=== PATIENT | male | born 1960 | race Caucasian/White ===

== ENCOUNTER 2018-08-02 18:45 | Outpatient (REF) | payer MEDICAID, SELFPAY ==
[2018-08-02 22:54] LABS: ALT 27 U/L (12-78); AST 15 U/L (15-37); Albumin 3.9 g/dL (3.4-5.0); Alkaline Phosphatase 69 U/L (46-116); Anion Gap 9.4 mmol/L (3-11); BUN 15 mg/dL (7-18); Bilirubin, Total 0.5 mg/dL (0.2-1.0); CO2 25.6 mmol/L (21.0-32.0); CREATININE 0.88 mg/dL (0.70-1.30); Calcium 8.8 mg/dL (8.5-10.1); Chloride 106 mmol/L (98-107); Cholesterol 210 mg/dL (50-200); Glucose 97 mg/dL (70-100); HDL Cholesterol 49 mg/dL (40-60); LDL CHOLESTEROL 146 mg/dL (<100); Sodium 141 mmol/L (136-145); Total Protein 7.2 g/dL (6.4-8.2); Triglyceride 100 mg/dL (30-150)
[2018-08-02 23:54] LABS: Hemoglobin A1C 5.4 % (4.5-6.2)
== END 2018-08-02 19:05 ==
LOC: NCHCN 18:45
PROVIDERS: PCP Family Medicine; Visit Provider Family Medicine
DX: I10 Essential (primary) hypertension (principal); R73.09 Other abnormal glucose; E66.3 Overweight
CPT/HCPCS: 80053; 80061; 83721; 83036

== ENCOUNTER 2018-08-18 20:33 | Outpatient (REF) | payer MEDICAID, SELFPAY ==
[2018-08-18 21:54] LABS: Anion Gap 9.8 mmol/L (3-11); BUN 13 mg/dL (7-18); CO2 27.2 mmol/L (21.0-32.0); CREATININE 0.87 mg/dL (0.70-1.30); Chloride 107 mmol/L (98-107); Glucose 151 mg/dL (70-100); Potassium 4.1 mmol/L (3.5-5.1); Sodium 144 mmol/L (136-145)
== END 2018-08-18 20:53 ==
LOC: NCHCN 20:33
PROVIDERS: PCP Family Medicine; Referring Provider Family Medicine; Visit Provider Family Medicine
DX: I10 Essential (primary) hypertension (principal)
CPT/HCPCS: 80048

== ENCOUNTER 2021-08-07 19:35 | Outpatient (REF) | payer MEDICAID, SELFPAY ==
[2021-08-07 21:47] LABS: Hemoglobin A1C 5.4 % (<5.7)
[2021-08-07 21:57] LABS: ALT 36 U/L (16-63); AST 14 U/L (15-37); Albumin 3.9 g/dL (3.4-5.0); Alkaline Phosphatase 66 U/L (46-116); Anion Gap 12.1 mmol/L (3-11); BUN 17 mg/dL (7-18); Bilirubin, Total 0.6 mg/dL (0.2-1.0); CO2 22.9 mmol/L (21.0-32.0); CREATININE 0.9 mg/dL (0.70-1.30); Calculated LDL 95 mg/dL (<100); Chloride 104 mmol/L (98-107); Cholesterol 190 mg/dL (<200); Glucose 107 mg/dL (74-106); HDL Cholesterol 68 mg/dL (40-60); Potassium 3.9 mmol/L (3.5-5.1); Sodium 139 mmol/L (136-145); Total Protein 7.1 g/dL (6.4-8.2); Triglyceride 139 mg/dL (<150)
[2021-08-10 10:02] LABS: PSA, Screening 0.8 ng/mL (0.0-4.5)
== END 2021-08-07 19:36 | disposition home or self-care (01) ==
LOC: NCHCN 19:35
PROVIDERS: PCP Family Medicine; Visit Provider Family Medicine
DX: I10 Essential (primary) hypertension (principal); R73.09 Other abnormal glucose; R39.11 Hesitancy of micturition; Z00.00 Encounter for general adult medical examination without abnormal findings
CPT/HCPCS: 80053; 80061; 84153; 83036

== ENCOUNTER 2021-08-25 15:56 | Outpatient (REF) | payer MEDICAID, SELFPAY ==
[2021-08-25 22:23] LABS: Anion Gap 10.3 mmol/L (3-11); BUN 14 mg/dL (7-18); CO2 26.7 mmol/L (21.0-32.0); CREATININE 1.3 mg/dL (0.70-1.30); Calcium 9.7 mg/dL (8.5-10.1); Chloride 106 mmol/L (98-107); Estimated GFR 56.31 (mL/min/1.73m2); Glucose 132 mg/dL (74-106); Potassium 3.6 mmol/L (3.5-5.1); Sodium 143 mmol/L (136-145)
== END 2021-08-25 15:57 | disposition home or self-care (01) ==
LOC: NCHCN 15:56
PROVIDERS: PCP Family Medicine; Visit Provider Family Medicine
DX: I10 Essential (primary) hypertension (principal)
CPT/HCPCS: 80048

== ENCOUNTER 2022-07-16 18:14 | Outpatient (REF) | payer MEDICAID, SELFPAY ==
[2022-07-16 15:43] LABS: ALT 29 U/L (16-63); AST 20 U/L (15-37); Albumin 3.6 g/dL (3.4-5.0); Alkaline Phosphatase 42 U/L (46-116); Anion Gap 5.7 mmol/L (3-11); BUN 10 mg/dL (7-18); Bilirubin, Total 0.4 mg/dL (0.2-1.0); CO2 27.3 mmol/L (21.0-32.0); CREATININE 0.9 mg/dL (0.70-1.30); Calcium 8.6 mg/dL (8.5-10.1); Chloride 106 mmol/L (98-107); Glucose 154 mg/dL (74-106); Potassium 4.1 mmol/L (3.5-5.1); Sodium 139 mmol/L (136-145); Total Protein 6.9 g/dL (6.4-8.2)
== END 2022-07-16 18:15 | disposition home or self-care (01) ==
LOC: NCHCN 18:14
PROVIDERS: PCP Family Medicine; Visit Provider Family Medicine
DX: I10 Essential (primary) hypertension (principal); Z72.89 Other problems related to lifestyle
CPT/HCPCS: 80053

== ENCOUNTER 2022-07-26 18:55 | Outpatient (REF) | payer MEDICAID, SELFPAY ==
[2022-07-26 21:57] LABS: Hemoglobin A1C 5.4 % (<5.7)
== END 2022-07-26 18:56 | disposition home or self-care (01) ==
LOC: NCHCN 18:55
PROVIDERS: PCP Family Medicine; Visit Provider Family Medicine
DX: E66.3 Overweight (principal); Z13.1 Encounter for screening for diabetes mellitus; Z00.00 Encounter for general adult medical examination without abnormal findings
CPT/HCPCS: 83036

== ENCOUNTER 2022-10-19 16:35 | Outpatient (REF) | payer MEDICAID, SELFPAY ==
[2022-10-19 16:36] LABS: ALT 28 U/L (16-63); AST 17 U/L (15-37); Albumin 4.1 g/dL (3.4-5.0); Alkaline Phosphatase 43 U/L (46-116); BUN 18 mg/dL (7-18); Bilirubin, Total 0.5 mg/dL (0.2-1.0); Calcium 9.2 mg/dL (8.5-10.1); Chloride 98 mmol/L (98-107); Estimated GFR 85.63 (mL/min/1.73m2); Glucose 167 mg/dL (74-106); Potassium 3.9 mmol/L (3.5-5.1); Sodium 133 mmol/L (136-145); Total Protein 7.5 g/dL (6.4-8.2)
== END 2022-10-19 16:36 | disposition home or self-care (01) ==
LOC: NCHCN 16:35
PROVIDERS: PCP Family Medicine; Visit Provider Family Medicine
DX: I10 Essential (primary) hypertension (principal)
CPT/HCPCS: 80053

== ENCOUNTER 2023-06-03 14:57 | Outpatient (REF) | payer MEDICAID, SELFPAY ==
[2023-06-03 14:55] LABS: ALT 24 U/L (16-63); AST 16 U/L (15-37); Albumin 4.2 g/dL (3.4-5.0); Alkaline Phosphatase 61 U/L (46-116); Anion Gap 8.6 mmol/L (3-11); BUN 26 mg/dL (7-18); Bilirubin, Total 0.4 mg/dL (0.2-1.0); CO2 27.4 mmol/L (21.0-32.0); CREATININE 0.8 mg/dL (0.70-1.30); Calcium 9.3 mg/dL (8.5-10.1); Calculated LDL 141 mg/dL (<100); Chloride 102 mmol/L (98-107); Cholesterol 225 mg/dL (<200); Estimated GFR 100.06 (mL/min/1.73m2); Glucose 126 mg/dL (74-106); HDL Cholesterol 77 mg/dL (40-60); Potassium 4.4 mmol/L (3.5-5.1); Sodium 138 mmol/L (136-145); Total Protein 7.2 g/dL (6.4-8.2); Triglyceride 35 mg/dL (<150)
[2023-06-03 22:44] LABS: PSA, Screening 0.7 ng/mL (<=4.5)
== END 2023-06-03 14:58 | disposition home or self-care (01) ==
LOC: NCHCN 14:57
PROVIDERS: PCP Family Medicine; Visit Provider Family Medicine
DX: Z00.00 Encounter for general adult medical examination without abnormal findings (principal); Z13.220 Encounter for screening for lipoid disorders; I10 Essential (primary) hypertension; Z12.5 Encounter for screening for malignant neoplasm of prostate
CPT/HCPCS: 80053; 80061; 84153

== ENCOUNTER 2023-07-07 09:09 | Outpatient (REF) | payer MEDICAID, SELFPAY ==
--- OUTSIDE RECORDS SUMMARY | 2023-07-07 09:12 | XMS_ITS | CCD ---
Author Name Unknown Address [address] [place] [address] [id number] Organization Unknown Address [address] [place] [address] [id number] Care Team Providers Care Photographic Laboratory Supervisor Name Role Phone FAREED CORBETT Attending Physician [phone] YONG TRIMBLE Er Physician 3 [phone] NARCISA Stanton Registered Nurse [phone] Vital Signs Vital Sign Value Unit Date/Time Recent/Initial ? BMI (Body Mass Index) 26.88 kg/m^2 05/28/2023 13: 06 Initial VS Weight Measured 182 lbs 05/28/2023 13:06 Ini tial VS Height 69 in 05/28/2023 13:06 Initial VS BSA (Body Surface Area) 2 m^2 05/28/2023 1 3:06 Initial VS BP Systolic 127 mmHg 05/28/2023 13:06 Initial VS BP Diastolic 76 mmHg 05/28/2023 13:06 Initia l VS Respiratory Rate 16 bpm 05/28/2023 13:06 In itial VS Heart Rate 97 bpm 05/28/2023 13:06 Initial VS O2 % BldC Oximetry 99 % 05/28/2023 13:06 Initial VS Body Temperature 36.6 degrees 05/28/2023 13:06 In itial VS BP Systolic 128 mmHg 05/28/2023 14:28 Most Re cent VS BP Diastolic 76 mmHg 05/28/2023 14:28 Most R ecent VS Respiratory Rate 16 bpm 05/28/2023 14:[address] Recent VS Heart Rate 82 bpm 05/28/2023 14:28 Most Rec ent VS O2 % BldC Oximetry 98 % 05/28/2023 14:28 Most Recent VS Body Temperature 36.6 degrees 05/28/2023 14:[address] Recent VS Allergies Allergy Code Allergy Type Reaction Status No Known Drug Allergies 0 No known drug allergies Active Procedures Unknown or Not Available. History of Immunizations Unknown or Not Available. Problems Problem Code Start Date Resolved Date Status HTN [id number] Active Results Unknown or Not Available. Active Medications Unknown or Not Available. Medications Administered During Visit Medication Dose Units Frequency Route Date/Time of Last Dose TETRACAINE OPTH SOLN 0.5% 4ML 1 DROP X1 OPTH EACH EYE 05/28/2023 13: 39 ERYTHROMYCIN OPHTHALMIC OINTMENT 1GM 1 DORINA X1 OPTH EACH EYE 05/28/2023 13: 39 Encounters Encounter Diagnosis Diagnosis Code Start Date Foreign body in right cornea [id number] 0 05/28/2023 Social History Smoking Status Code Start Date End Date Never smoker [id number] Patient Decision Aids Unknown or Not Available. Discharge Instructions You were admitted to [facility] on 05/28/2023 12:56 with a principal diagnosis of Foreign body in cornea, right eye, initial encounter You were discharged from [facility] on 05/28/2023 14:38 Should you have any questions prior to discharge, please contact a member of your healthcare team. If you have left the hospital and have any questions, please contact your primary care physician. Chief Complaint and Reason For Visit Chief Complaint Date of Onset FOREIGN OBJECT IN RIGHT EYE Function Status Unknown or Not Available. Plan of Care Unknown or Not Available. Referral/Transition of Care Unknown or Not Available.
[2023-07-07 16:16] LABS: Hemoglobin A1C 5.4 % (<5.7)
[2023-07-07 16:36] LABS: Glucose 114 mg/dL (74-106)
== END 2023-07-07 09:10 | disposition home or self-care (01) ==
LOC: NCHCN 09:09
PROVIDERS: PCP Family Medicine; Visit Provider Family Medicine
DX: R73.01 Impaired fasting glucose (principal)
CPT/HCPCS: 82947; 83036

== ENCOUNTER 2024-08-09 15:38 | Outpatient (REF) | payer MEDICAID, SELFPAY ==
--- OUTSIDE RECORDS SUMMARY | 2024-08-09 15:40 | XMS_ITS ---
Author Organization Unknown Address [address] [place] [address] [phone] Phone Care Team Providers Care Hand Lacer Name Role Phone SOURAV BLEVINS Registered Nurse Unavailable CARLOS Mcdonald Attending Unavailable ROCIO Alex Primary Unavailable UNLISTED PROVIDER - REQUESTED Xhandoff Un available Social History Type Status Start Date End Date Code Code Syst em Smoking History Never smoker (Never Smoked) 411323800 SNOMED CT Sex Male Vital Signs Vital Sign Value Unit [place] Value [place] Unit Date/Time Recent/Initial? Code Code System Body Mass Index 29.95 kg/m2 02/15/2024 08:55 Initial 04178 -5 [facility] Systolic Blood Pressure 186 mm[Hg] 02/15/2024 08:55 Initial 8480- 6 [facility] Diastolic Blood Pressure 86 mm[Hg] 02/15/2024 08:55 Initial 8462- 4 [facility] Body Surface Area 2.07 m2 02/15/2024 08:55 Initial 3140- 1 LOINC Height 172.720 0 cm 68.00 in 02/15/2024 08:55 Initial 8302- 2 [facility] O2 Saturation 99 % 2023 08:55 Initial 50594 -5 [facility] Pulse 82.0 /min 02/15/2024 08:55 Initial 8867- 4 [facility] Respiration 16 /min 02/15/20 08:55 Initial 9279- 1 LOINC Temperature 37.3 Merissa 99.1 F 02/15/20 08:55 Initial 8310- 5 [facility] Weight 89.36 kg 197.00 lbs 02/15/2024 08:55 Initial 09100 -7 [facility] Medications Medication Start Date End Date Route Frequency Dose Code Code System Medication Instructions Home Meds Ibuprofen 200MG Oral Tablet 02/15/2024 Unknown ORAL EVERY 6 HOURS 3 TABLET 839540 RxNorm TAKE 3 TABLET ORAL EVERY 6 HOURS FOR 2 DAYS THEN NEEDED FOR PAIN Acetaminophen 500MG Oral Tablet 02/15/2024 Unknown ORAL NEEDED EVERY 6 HOURS 2 TABLET 572070 RxNorm TAKE 2 TABLET ORAL EVERY 6 HOURS FOR 2 DAYS THEN NEEDED FOR Pain Cyclobenzaprine 10MG Oral Tablet 02/15/2024 Unknown ORAL NEEDED EVERY 6 HOURS 1 TABLET 403020 RxNorm TAKE 1 TABLET ORAL NEEDED EVERY 6 HOURS FOR Pain/spasm Lidocaine 5% Topical application Patch, Extended Release 02/15/2024 Unknown TOPICAL APPLICATIO N DAILY 1 6671731 RxNorm 1-2 PATCHES TOPICAL APPLICATION DAILY, 12 hours on and 12 hours off per day Assessment You had the following problems:HTNACUTE LOW BACK PAIN Hospital Discharge Instructions Should you have any questions prior to discharge, please contact a member of your healthcare team. If you have left the hospital and have any questions, please contact your primary care physician. Reason For Referral No Data Found Problems Problem Start Date Resolved Date Status Code Code System HTN active [id number] SNOMED-CT ACUTE LOW BACK PAIN active 990840494 SNOMED-CT Allergies and Adverse Reactions Allergy Substance Reaction Severity Start Date Concern Status Co de Code System No Known Drug Allergies Active 117569270 SNOMED-CT Plan of Treatment OUTPATIENT PLAN: Additional Physician Instructions: Heat and stretches as discussed. Your prescription was electronically sent to [facility]. Discharge Medications Medication Dosage Route Frequency Prescribing MD Special Instructions Ibuprofen 200MG Oral Tablet (hiiu-ioc-enolljo) 3 TABLET ORAL EVERY 6 HOURS CARLOS Mcdonald TAKE 3 TABLET ORAL EVERY 6 HOURS FOR 2 DAYS THEN NEEDED FOR PAIN Acetaminophen 500MG Oral Tablet (afer-yfa-eiyuczp) 2 TABLET ORAL NEEDED EVERY 6 HOURS CARLOS Mcdonald TAKE 2 TABLET ORAL EVERY 6 HOURS FOR 2 DAYS THEN NEEDED FOR Pain Cyclobenzaprine 10MG Oral Tablet 1 TABLET ORAL NEEDED EVERY 6 HOURS CARLOS Mcdonald TAKE 1 TABLET ORAL NEEDED EVERY 6 HOURS FOR Pain/spasm Lidocaine 5% Topical application Patch, Extended Release TOPICAL APPLICATION DAILY CARLOS Mcdonald 1-2 PATCHES TOPICAL APPLICATION DAILY, 12 hours on and 12 hours off per day HOSPITAL COURSE AND TESTING: Medications given this visit: Ordered & Completed Meds Table Ordered Medication Start Date/Time Dosage Route Frequency Status ACETAMINOPHEN TABLET: 325MG 02/15/2024 09:03 975 MG ORAL X1 active LIDOCAINE PATCH 5% 02/15/2024 09:03 2 PATCH TRANSDERMAL X1 active Encounters Encounter Diagnosis Start Date Code Code Sys tem Low back pain, unspecified 02/15/2024 S NOMED-CT Personal Care Team Section Performer Name Performer Role Active Date Inactive Da te
--- OUTSIDE RECORDS SUMMARY | 2024-08-09 15:40 | XMS_ITS | Clinical Summary ---
Author Organization [facility] Address [address] [place] [address] Care Team Providers Care Painter Tumbling Barrel Name Role Phone Unavailable Primary Care Provider Unavailabl e Social History Tobacco Use Types Packs/Day Years Used Date Smoking Tobacco: Never Assessed Sex and Gender Information Value Date Recorded Sex Assigned at Not on file Gender Identity Not on file Sexual Orientation Not on file Plan of Treatment Health Maintenance Due Date Last Done Comments Hepatitis C Screen 1960 RSV Immunization ( o r 60+ Years) (1 - 1-dose 60+ series) 2021 COVID-19 Vaccine (2022-24 season) 2023
--- OUTSIDE RECORDS SUMMARY | 2024-08-09 15:40 | XMS_ITS | Data Portability ---
Author Organization [place] - [facility] Address [address] [address] Care Team Providers Care Inside Sales Consultant Name Role Phone RAMON WILLIS Dentist Assessment No assessment recorded. Plan of Treatment Reminders Order Date Submit Date Provider Last Modified By Organization Details Last Modified Time Details Appointments Nurse Visit 20 2023 07:50A M Not available Not available Not available Annual Wellness Exam 40 2023 01:00P M Not available Not available Not available Lab HbA1c (hemoglob in A1c), blood [address] [facility] (Registration ), [address] [place] [address] [place], [address], 08/09/2024 10:38:40 CMP, serum or plasma [address] [facility] (Registration ), [address] [place] [address] [place], [address], 08/09/2024 10:38:40 lipid panel, serum [address] [facility] (Registration ), [address] [place] [address] [place], [address], 08/09/2024 10:38:40 PSA, serum or plasma [address] [facility] (Registration ), [address] [place] [address] [place], [address], 08/09/2024 10:38:40 Referral None recorded. Procedures None recorded. Surgeries None recorded. Imaging None recorded. Medication Orders None recorded. Patient TargetsNo targets recorded. Patient Instructions Encounter Date Encounter Id Patient Instructions Last Modified By Organization Details Last Modified Time 02/07/2024 [id number] weight managemen t education Not available 02/08/2024 06:08:53 It was nice to see you, Elias! Your blood pressure is excellent! Try to increase your physical activity to counteract the winter weight gain! I'll see you in 6 months, with fasting labs ahead of time. Call in the meantime with any questions or concerns. Take care! Not available 02/07/2024 15:09:07 Reason for Referral Dentist Referral for Poor or al hygiene Referring Physician: Michael Horvath, Family Medicine, Encounter Date: 06/18/2024 Problems Name Problem SNOMED Code Status Onset Date Resolution Date Notes Provider Name and Address Organization Details Recorded Time [facility] hyperten kristi 18388577 Active 201512/18/19 23 - Comments only - Michael Horvath M.D. - Excellen t control with the increase d amlodipi ne dose. He has also made some signific ant reductio ns in alcohol intake. Encour ed him to keep up the good work. UTD on labs. No change to regimen, follow-u p in 6 months with fasting labs ahead of time. Problem Code: I10; Problem Code Type: ICD-10; MD [address], [place], [address] , [facility] 4 06:06:30 [place] ht 715481521 Active 201708/07/20 21 - Comments only - Michael Horvath M.D. - Labs as below. Leif hickey Problem Code: E66.3; Problem Code Type: ICD-10; MD [address], [place], [address] , [facility] 4 06:06:29 Screenin g for malignan t neoplasm of colon Completed 201702/08/2024 Problem Code: Z12.11; Problem Code Type: ICD-10; MD [address], [place], [address] , [facility] 4 06:06:37 Adult health examinat ion Active 202008/07/20 21 - Comments only - Michael Horvath M.D. - Labs today. [place] ordered. Problem Code: Z00.00; Problem Code Type: ICD-10; MD [address], [place], [address] , [facility] 4 06:06:30 Delay when starting to pass urine 0163357 Completed 202011/05/2021 08/07/20 21 - Comments only - Michael Horvath M.D. - Likely BPH. Check PSA today. At f/u appt in a few wks, consider prostate exam and starting BPH med. Problem Code: R39.11; Problem Code Type: ICD-10; Not Available [facility] 3 05:39:02 Carpal tunnel syndrome of right wrist 23807740005 9108 Completed 202002/08/2024 08/26/20 21 - Comments only - Michael Horvath M.D. - Again, reviewed recommen dations for nighttim e brace. He will let me know if symptoms worsen. Problem Code: G56.01; Problem Code Type: ICD-10; MD [address], [place], [address] , [facility] 4 06:06:37 Self-inj urious behavior 930719918 Completed 202102/08/2024 08/03/20 22 - Comments only - Michael Horvath M.D. - [facility] ed to continue his efforts at reducing alcohol intake. Reviewed the risk of 2 or fewer drinks per day for a man. Problem Code: Z72.89; Problem Code Type: ICD-10; MD [address], [place], [address] , [facility] 4 06:06:37 Disorder of tooth developm ent 085239109 Completed 202102/08/2024 04/05/20 22 - Comments only - Michael Horvath M.D. - With what sounds like a recent abscess, although no signs of abscess on exam today. Advised continue d salt water rinses and to get in GISELA with a dentist. I've asked him to reach out if he has difficul ty establis umberto care in a timely manner. Problem Code: K00.9; Problem Code Type: ICD-10; MD [address], [place], [address] , [facility] 4 06:06:37 Erectile dysfunct ion 757347636 Active 202112/18/19 23 - Comments only - Michael Horvath M.D. - 50 mg sildenaf il was ineffect arelis. I instruct ed him to try 100 mg. If ineffect arelis, he will let me know, and we can try a differen t medicati on. Problem Code: N52.9; Problem Code Type: ICD-10; MD [address], [place], [address] , [facility] 4 06:06:30 Hyperlip idemia screenin g Completed 202208/10/2023 Problem Code: Z13.220; Problem Code Type: ICD-10; Not Available [facility] 3 05:39:02 Screenin g for malignan t neoplasm of prostate Completed 202208/10/2023 Problem Code: Z12.5; Problem Code Type: ICD-10; Not Available [facility] 3 05:39:02 Impaired fasting glycemia 089583470 Completed 202206/11/2023 Problem Code: R73.01; Problem Code Type: ICD-10; Not Available [facility] 3 05:39:03 Impaired fasting glycemia 804921280 Completed 202211/08/2023 Problem Code: R73.01; Problem Code Type: ICD-10; Not Available Replaced by [facility] 4 05:36:47 Cataract 060969813 Completed 202104/05/2022 Problem Code: H26.9; Problem Code Type: ICD-10; Not Available Replaced by [facility] 3 05:39:08 Blood glucose outside referenc e range 696697714 Completed 201508/24/2023 03/07/20 19 - Comments only - Michael Horvath M.D. - A1c remains normal today at 5.3%. We will continue to monitor every 6 months. Problem Code: R73.09; Problem Code Type: ICD-10; Not Available Replaced by [facility] 3 05:39:09 Localize d eruption of skin 965825201 Completed 201504/15/2016 Problem Code: R21; Problem Code Type: ICD-10; Not Available Replaced by [facility] 3 05:39:10 Prediabe paris 051714205 Completed 201508/26/2021 Problem Code: R73.03; Problem Code Type: ICD-10; MICHAEL HORVATH MD [address], [place], [address] , [facility] 4 06:06:30 Alcohol abuse 07416181 Completed 201508/07/2021 Problem Code: F10.10; Problem Code Type: ICD-10; Not Available Replaced by [facility] 3 05:39:14 Blood glucose outside referenc e range 831640095 Completed 202008/26/2021 Problem Code: R73.09; Problem Code Type: ICD-10; Not Available Replaced by [facility] 3 05:39:15 Prediabe paris 115352993 Active 202208/22/20 23 - Comments only - Michael Horvath M.D. - Normal A1c, but IFG x 2. counsele d re: healthy diet, exercise . f/u 6 mos. Problem Code: R73.03; Problem Code Type: ICD-10; MICHAEL HORVATH MD [address], [place], [address] , [facility] 4 06:06:30 Problem Notes None recorded. Medical Equipment None Reported. Allergies No known drug allergies Medications Name Sig Start Date Stop Date Status Note LastModified by Organization Details LastModified Time cyclobenzap rine 10 mg tablet TAKE 1 TABLET BY MOUTH EVERY 6 HOURS FOR PAIN AND SPASMS active Not Available Not Available No t Available sildenafil 50 mg tablet TAKE 1-2 TABLET BY ORAL ROUTE ONCE DAILY NEEDED APPROXIMA TELY 1 HOUR BEFORE SEXUAL ACTIVITY 2022 active Not Available Not Available Not Avai lable azithromyci n 250 mg tablet TAKE 2 TABLETS BY MOUTH FOR 1 DAY THEN TAKE 1 TABLET BY MOUTH EVERY DAY FOR 4 DAYS active Not Available Not Available No t Available lisinopril 20 mg tablet Take 1 tab by mouth daily 2017 active Not Available Not Available Not Avai lable amlodipine 5 mg tablet Take 1 tablet by mouth once a day 07/02 completed Not Available Not Available Not Available sildenafil 100 mg tablet Take 1 tablet by mouth once a day as needed 1 hour prior to intercour se 2022 active Not Available Not Available Not Avai lable amlodipine 10 mg tablet TAKE 1 TABLET BY MOUTH EVERY DAY active Not Available Not Available No t Available lisinopril 10 mg tablet Take 1 tab by mouth daily 04/19 completed Not Available Not Available Not Available lidocaine 5 % topical patch APPLY 1-2 PATCHES TOPICAL DAILY. 12 HOURS ON AND 12 HOURS OFF active Not Available Not Available No t Available hydrochloro thiazide 25 mg tablet Take 1 tab by mouth daily 04/05 completed Not Available Not Available Not Available lisinopril 40 mg tablet TAKE 1 TABLET BY MOUTH EVERY DAY active Not Available Not Available No t Available hydrochloro thiazide 12.5 mg tablet TAKE 1 TABLET BY MOUTH EVERY DAY active Not Available Not Available No t Available BinaxNOW COVID-19 Ag Self Test kit TEST DIRECTED TODAY active Not Available Not Available No t Available Vitals Date Recorded Body height Oxygen saturation Oxygen saturation in Arterial blood by Pulse oximetry Heart rate Body temperature Body mass index (BMI) Body weight Systolic blood pressure Diastolic blood pressure Provider Name and Address Organization Details Last Updated DateTime 172.72 cm 96 % 96 % 76 /min 98.1 [degF] 29.6 kg/m2 01849.5 1 g 138 mm[Hg] 74 mm[Hg] MARC GALLEGOS RN [facility] 14:54:25 Date Recorded Systolic blood pressure Diastolic blood pressure Provider Name and Address Organization Details Last Updated DateTime 02/07/2024 118 mm[Hg] 58 mm[Hg] MICHAEL HORVATH MD [address], [place], [address], [facility] 02/07/2024 15:04:48 Social History Question Answer Notes LastModified by Organizat ion Details LastModified Time Tobacco Smoking Status Never Smoker MARC GALLEGOS RN [facility], [facility] 02/07/2024 14:50:38 What Was The Date Of Your Most Recent Tobacco Screening? 02/07/2024 Information not available 02/07/2024 Do You Or Have You Ever Used Any Other Forms Of Tobacco Or Nicotine? No Information not available 02/07/2024 Sex: Male Functional Status None recorded. Mental Status None recorded. Family History Relationship Description Onset Age of this Age Resolved Age Notes Unspecified Relation Family history unknown Relative: 'First Degree Blood Relative'; Medical History No medical history recorded. Immunizations Vaccine Type Date Status Provider Name and Address Organization Details Recorded Time COVID-19, mRNA, LNP-S, PF, mirlande-sucrose, 30 mcg/0.3 mL 02/07/2024 completed MICHAEL HORVATH MD [address], [place], [address], [facility] 02/08/2024 06:05:19 Tdap 08/25/2021 completed Not Available [facility] 06:09:45 COVID-19, mRNA, LNP-S, PF, 100 mcg/0.5mL dose or 50 mcg/0.25mL dose 04/02/2022 completed Not Available Replaced by [facility] 10/07/2023 06:09:45 COVID-19, mRNA, LNP-S, PF, 100 mcg/0.5mL dose or 50 mcg/0.25mL dose 04/07/2021 completed Not Available Replaced by [facility] 10/07/2023 06:09:45 COVID-19, mRNA, LNP-S, PF, 100 mcg/0.5mL dose or 50 mcg/0.25mL dose 05/05/2021 completed Not Available Replaced by [facility] 10/07/2023 06:09:45 COVID-19, mRNA, LNP-S, bivalent, PF, 30 mcg/0.3 mL dose 12/10/2022 completed Not Available Replaced by [facility] 10/07/2023 06:09:45 Past Encounters Encounter ID Performer Location Encounter Start Date Encounter Closed Date Diagnosis/Indication Diagnosis SNOMED-CT Code Diagnosis ICD10 Code [id number] MICHAEL HORVATH MD [address] [address] 02/07/2024 14:30:58 02/07/2024 15:13:53 Active or passive immunization 552897534 Z23 Essential hypertension 47932956 I10 Prediabetes 351306314 R7 3.03 Overweight 631537873 E66 .3 [id number] JOEY SALAZAR RN [address] [address] 08/09/2024 07:37:17 08/09/2024 08:32:15 Essential hypertension 41201927 I10 Adult [facility] examination 621120755 Z00.00 Prediabetes 201682521 R7 3.03 Health Concerns Section Related Observation LastModified by Organization Detai ls LastModified Time None Recorded Concern Status LastModified by Organization Details LastModified Time None Recorded Advance Directives Directive None Recorded Payers Encounter Date Sequence Insurance Name Policy Number Policy Squires Covered Member ID Squires Member ID Guarantor Name 02/07/2024 1 [facility] (MEDICAID) Aj Newby [id number] Aj Newby 08/09/2024 1 [facility] (MEDICAID) Aj Newby [id number] Aj Newby Notes Date Note Type Note Provider Name and Address Organization Details Recorded Time 02/07/2024 text/html HPI Notes: cc: f /u HTN, preDM doing well. less active in the negron. taking meds as rx'd, w/o AEs. specifically denies dizziness. doesn't check BP at home MD [address]ia [address], [place], [address], [facility]. 02/08/2024 06:09:21
--- OUTSIDE RECORDS SUMMARY | 2024-08-09 15:40 | XMS_ITS | Encounter Summary ---
Author Organization [facility] Address [address] [place] [address] Care Team Providers Care Supply Chain Director Name Role Phone Unavailable Primary Care Provider Unavailabl e Encounter Details Date Type Department Care Team (Late st Contact Info) Description 08/08/2021 Lab Requisition [facility] Pathology & Laboratory Medicine - [facility] [address] [place] [address] Outr Resulting Lab, Provider Social History Tobacco Use Types Packs/Day Years Used Date Smoking Tobacco: Never Assessed Sex and Gender Information Value Date Recorded Sex Assigned at Not on file Gender Identity Not on file Sexual Orientation Not on file documented as of this encounter Plan of Treatment Not on file documented as of this encounter Procedures Procedure Name Priority Date/Time Associated Diagnosis Comments PSA TOTAL, DIAGNOSTIC Routine 08/07/2021 14:44 EDT documented in this encounter Results * PSA TOTAL, DIAGNOSTIC (08/07/2021 14:44 EDT) PSA 0.8 0.0 - 4.5 ng/mL 08/10/2021 9:57 EDT [facility] Blood VENOUS BLOOD / Unknown 08/07/2021 14:44 EDT 08/09/2021 16:28 EDT Narrative [facility] - 08/10/2021 9:57 EDT NOTE: Serum PSA concentration should not be interpreted as absolute evidence for the presence or absence of malignant disease. Assayed on Siemens ADVIA Centaur XPT using chemiluminescent technology.??Values obtained by using different assay methods cannot be used interchangeably. Provider Outr Resulting Lab CHEMISTRY & BLOOD GAS ORDERABLES [facility] [address] [place] [address] documented in this encounter Visit Diagnoses Not on filedocumented in this encounter
--- OUTSIDE RECORDS SUMMARY | 2024-08-09 15:40 | XMS_ITS | Encounter Summary ---
Author Organization [facility] Address [address] [place] [id number] Care Team Providers Care Nutrient Management Specialist Name Role Phone Unavailable Primary Care Provider Unavailabl e Encounter Details Date Type Department Care Team (Late st Contact Info) Description 06/03/2023 Lab Requisition [facility] Pathology & Laboratory Medicine - [facility] [address] [place] [address] Outr Resulting Lab, Provider Social History Tobacco [...] Associated Diagnosis Comments PSA TOTAL, DIAGNOSTIC Routine 06/03/2023 7:30 EDT documented in this encounter Results * PSA TOTAL, DIAGNOSTIC (06/03/2023 7:30 EDT) PSA 0.7 <=4.5 ng/mL 06/03/2023 22:40 EDT [facility] Blood VENOUS BLOOD / Unknown 06/03/2023 7:30 EDT 06/03/2023 21:32 EDT Narrative [facility] - 06/03/2023 22:40 EDT NOTE: Serum PSA concentration should not be interpreted as absolute evidence for the presence or absence of malignant disease. Assayed on Siemens ADVIA Centaur XPT using chemiluminescent technology.??Values obtained by using different assay methods cannot be used interchangeably. Provider Outr Resulting Lab CHEMISTRY & BLOOD GAS ORDERABLES [facility] [address] [place] [address] documented in this encounter Visit Diagnoses Not on filedocumented in this encounter
--- OUTSIDE RECORDS SUMMARY | 2024-08-09 15:40 | XMS_ITS | Referral Summary ---
Author Organization [facility] Address [address] [place] [address] Care Team Providers Care Hog Pusher Name Role Phone Unavailable Primary Care Provider Unavailabl e Social History Tobacco Use Types Packs/Day Years Used Date Smoking Tobacco: Never Assessed Sex and Gender Information Value Date Recorded Sex Assigned at Not on file Gender Identity Not on file Sexual Orientation Not on file Plan of Treatment Not on file
--- OUTSIDE RECORDS SUMMARY | 2024-08-09 15:40 | XMS_ITS ---
Author Organization Unknown Address [address] [place] [phone] Phone Care Team Providers Care Biotechnician Name Role Phone NARCISA TOVAR Registered Nurse Unavailable CHELLE Mcdonald Attending Unavailable [facility] Unavailable ROCIO Alex Primary Unavailable UNLISTED PROVIDER - REQUESTED Xhandoff Un available Social History Type Status Start Date End Date Code Code Syst em Smoking History Never smoker (Never Smoked) 173972806 SNOMED CT Sex Male Vital Signs Vital Sign Value Unit Dickens Value Dickens Unit Date/Time Recent/Initial? Code Code System Body Mass Index 26.88 kg/m2 05/28/2023 13:06 Initial 34306 -5 LOINC Systolic Blood Pressure 128 mm[Hg] 05/28/2023 14:28 Most Recent 8480- 6 LOINC Diastolic Blood Pressure 76 mm[Hg] 05/28/2023 14:28 Most Recent 8462- 4 LOINC Systolic Blood Pressure 127 mm[Hg] 05/28/2023 13:06 Initial 8480- 6 LOINC Diastolic Blood Pressure 76 mm[Hg] 05/28/2023 13:06 Initial 8462- 4 LOINC Body Surface Area 2.00 m2 05/28/2023 13:06 Initial 3140- 1 LOINC Height 175.260 0 cm 69.00 in 05/28/2023 13:06 Initial 8302- 2 LOINC O2 Saturation 98 % 2022 14:28 Most Recent 54394 -5 LOINC O2 Saturation 99 % 2022 13:06 Initial 14329 -5 LOINC Pulse 82.0 /min 05/28/2023 14:28 Most Recent 8867- 4 LOINC Pulse 97.0 /min 05/28/2023 13:06 Initial 8867- 4 LOINC Respiration 16 /min 05/28/20 14:28 Most Recent 9279- 1 LOINC Respiration 16 /min 05/28/20 13:06 Initial 9279- 1 LOINC Temperature 36.6 Merissa 97.9 F 05/28/20 14:28 Most Recent 8310- 5 LOINC Temperature 36.6 Merissa 97.9 F 05/28/20 13:06 Initial 8310- 5 LOINC Weight 82.55 kg 182.00 lbs 05/28/2023 13:06 Initial 33138 -7 LOINC Medications Medication Start Date End Date Route Frequency Dose Code Code System Medication Instructions Home Meds Ibuprofen 200MG Oral Tablet 02/15/2024 Unknown ORAL EVERY 6 HOURS 3 TABLET 102368 RxNorm TAKE 3 TABLET ORAL EVERY 6 HOURS FOR 2 DAYS THEN NEEDED FOR PAIN Acetaminophen 500MG Oral Tablet 02/15/2024 Unknown ORAL NEEDED EVERY 6 HOURS 2 TABLET 220134 RxNorm TAKE 2 TABLET ORAL EVERY 6 HOURS FOR 2 DAYS THEN NEEDED FOR Pain Cyclobenzaprine 10MG Oral Tablet 02/15/2024 Unknown ORAL NEEDED EVERY 6 HOURS 1 TABLET 402069 RxNorm TAKE 1 TABLET ORAL NEEDED EVERY 6 HOURS FOR Pain/spasm Lidocaine 5% Topical application Patch, Extended Release 02/15/2024 Unknown TOPICAL APPLICATIO N DAILY 1 6638644 RxNorm 1-2 PATCHES TOPICAL APPLICATION DAILY, 12 [...] Date Status Code Code System HTN active 27923724 SNOMED-CT ACUTE LOW BACK PAIN active 173318714 SNOMED-CT Allergies and Adverse Reactions Allergy Substance Reaction Severity Start Date Concern Status Co de Code System No Known Drug Allergies Active 031092627 SNOMED-CT Plan of Treatment No Data Found Encounters Encounter Diagnosis Start Date Code Code Sys tem Foreign body in right cornea 05/28/2023 [id number] 12781 SNOMED-CT Personal Care Team Section Performer Name Performer Role Active Date Inactive Da kartik
[2024-08-09 17:29] LABS: Hemoglobin A1C 5.5 % (<5.7)
[2024-08-09 18:18] LABS: ALT 29 U/L (16-63); AST 19 U/L (15-37); Albumin 4.1 g/dL (3.4-5.0); Alkaline Phosphatase 65 U/L (46-116); Anion Gap 7.1 mmol/L (3-11); BUN 10 mg/dL (7-18); Bilirubin, Total 0.57 mg/dL (0.2-1.0); CO2 27.9 mmol/L (21.0-32.0); CREATININE 0.8 mg/dL (0.70-1.30); Calcium 9.2 mg/dL (8.5-10.1); Calculated LDL 138 mg/dL (<100); Chloride 104 mmol/L (98-107); Cholesterol 219 mg/dL (<200); Estimated GFR 99.44 (mL/min/1.73m2); Glucose 118 mg/dL (74-106); HDL Cholesterol 69 mg/dL (40-60); Potassium 4.1 mmol/L (3.5-5.1); Sodium 139 mmol/L (136-145); Total Protein 7.7 g/dL (6.4-8.2); Triglyceride 63 mg/dL (<150)
[2024-08-10 19:31] LABS: PSA, Screening 0.7 ng/mL (<=4.5)
== END 2024-08-09 15:39 | disposition home or self-care (01) ==
LOC: NCHCN 15:38
PROVIDERS: PCP Family Medicine; Visit Provider Family Medicine
DX: I10 Essential (primary) hypertension (principal); Z00.00 Encounter for general adult medical examination without abnormal findings; R73.03 Prediabetes
CPT/HCPCS: 80053; 80061; 84153; 83036

== ENCOUNTER 2025-09-10 10:13 | Outpatient (REF) | payer MEDICAID, SELFPAY ==
[2025-09-10 17:25] LABS: Hemoglobin A1C 5.8 % (<5.7)
[2025-09-10 17:28] LABS: ALT 31 U/L (16-63); AST 23 U/L (15-37); Albumin 4.1 g/dL (3.4-5.0); Alkaline Phosphatase 62 U/L (46-116); Anion Gap 9.6 mmol/L (3-11); BUN 13 mg/dL (7-18); Bilirubin, Total 0.6 mg/dL (0.2-1.0); CO2 26.4 mmol/L (21.0-32.0); Calcium 9.2 mg/dL (8.5-10.1); Calculated LDL 132 mg/dL (<100); Chloride 104 mmol/L (98-107); Cholesterol 211 mg/dL (<200); Estimated GFR 102.89 (mL/min/1.73m2); Glucose 110 mg/dL (74-106); HDL Cholesterol 60 mg/dL (>or=40); Potassium 3.8 mmol/L (3.5-5.1); Sodium 140 mmol/L (136-145); Total Protein 7.5 g/dL (6.4-8.2); Triglyceride 96 mg/dL (<150)
[2025-09-11 18:23] LABS: PSA, Screening 0.8 ng/mL (<=4.5)
== END 2025-09-10 10:14 | disposition home or self-care (01) ==
LOC: NCHCN 10:13
PROVIDERS: PCP Family Medicine; Visit Provider Family Medicine
DX: Z00.00 Encounter for general adult medical examination without abnormal findings (principal); R73.03 Prediabetes; I10 Essential (primary) hypertension; E78.5 Hyperlipidemia, unspecified
CPT/HCPCS: 80053; 80061; 84153; 83036